=== PATIENT | female | born 1970 | race Hispanic/Latino ===

== ENCOUNTER 2017-02-04 12:38 | Emergency (ER) | payer OTHER ==
[2017-02-04] MEDS ORDERED: predniSONE 10 MG TAB ONE (13:01)
[2017-02-04] MEDS ORDERED: predniSONE 20 MG TAB ONE (13:01)
[2017-02-04] MEDS ORDERED: hydrALAZINE 20 MG/ML VIAL ONE (13:23)
== END 2017-02-04 14:30 | disposition home or self-care (01) ==
LOC: NAV ERS 12:38
DX: S60.461A Insect bite (nonvenomous) of left index finger, initial encounter (principal); S60.463A Insect bite (nonvenomous) of left middle finger, initial encounter; I10 Essential (primary) hypertension; W57.XXXA Bitten or stung by nonvenomous insect and other nonvenomous arthropods, initial encounter
CPT/HCPCS: 96372; J0360; J7506; J7512